=== PATIENT | male | born 1975 | race Caucasian/White ===

== ENCOUNTER 2020-12-30 11:57 | Emergency (ER) | payer BC ==
[2020-12-30 12:24] VITALS: BP 126/78; PULSE 67
[2020-12-30] MEDS: Bacitracin/Neomycin/Polymyxin B Oint 0.9 GM U/D Packet TOP ONE (12:32)
[2020-12-30] MEDS: Diphtheria,Pertussis(Acell),Tetanus Vaccine 0.5 ML Syringe IM ONE (12:47)
--- NOTE | 2020-12-30 12:52 | EDM.PDOC ---
ED HPI GENERAL MEDICAL PROBLEM - General Chief Complaint: Laceration Stated Complaint: laceration Time Seen by Provider: 12/30/20 12:15 Source of Information: Reports: Patient, RN, RN Notes Reviewed History Limitations: Reports: No Limitations - History of Present Illness INITIAL COMMENTS - FREE TEXT/NARRATIVE: Pt. presents to ER with complaints of laceration to L forearm. 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 Tetanus is not up to date. Pt. states the he placed a bandaid on the laceration which did control the bleeding, but he developed a hematoma surrounding the laceration. He did not notice any spurting of blood, but stated that the laceration was bleeding heavily. He subsequently presented to the ER. Pt. is allergic only to penicillin. He is a non-smoker, non drinker. Onset: Today Location: Reports: Upper Extremity, Left Quality: Reports: Sharp - Related Data Allergies Allergy/AdvReac Type Severity Reaction Status Date / Time Penicillins Allergy Cannot Verified 12/30/20 12:12 Remember Home Meds: Home Meds Glucosamine/D3/Boswellia Torie [Osteo Bi-Flex Caplet] 1 tab PO DAILY 12/30/20 [History] Loratadine [Claritin] 10 mg PO DAILY 12/30/20 [History] Past Medical History HEENT History: Reports: Other (See Below) Other HEENT History: seasonal allergies ED ROS GENERAL - Review of Systems Review Of Systems: Comprehensive ROS is negative, except as noted in HPI. ED EXAM, SKIN/RASH Exam: See Below Exam Limited By: No Limitations General Appearance: Alert, WD/WN, No Apparent Distress Peripheral Pulses: 4+: Radial (L) Extremities: Normal Inspection, Normal Range of Motion, Non-Tender, Normal Capillary Refill, Other (approx. 2 cm laceration to the volar aspect of L forearm. It is actually quite superficial but appears to have hit a large peripheral superficial vein. No arterial bleeding noted. Arterial pulse easily palpable distal to the laceration. Bleeding had stopped with the dressing that was applied.). No: Slow Capillary Refill, Pallor Neurological: Alert, Oriented, CN II-XII Intact, Other (Circulation, sensation and motor function were within normal limits.). No: Normal Cognition, No Motor/Sensory Deficits ED SKIN PROCEDURES - Laceration/Wound Repair Left Ventral Arm Appearance: Subcutaneous Distal NVT: Neuro & Vascular Intact, No Tendon Injury Local Anesthesia - Lidocaine (Xylocaine): 1% Plain Local Anesthetic Volume: 5cc Skin Prep: Providone-Iodine (Betadine), Saline, Sterile Drape Exploration/Debridement/Repair: Wound Explored Closed with: Sutures Lac/Wound length In cm: 2 Suture Size: 4-0 # of Sutures: 3 Suture Type: Nylon, Interrupted Course - Vital Signs Last Recorded V/S: Last Vital Signs Temp 36.7 C 12/30/20 12:05 Pulse 67 12/30/20 12:05 Resp 18 12/30/20 12:05 BP 126/78 12/30/20 12:05 Pulse Ox 98 12/30/20 12:05 - Orders/Labs/Meds Orders: Active Orders 24 hr Category Date Time Status Vaccine to be Administered/Admin Charge [RC] ASDIRECTED Care 12/30/20 12:31 Active Meds: Medications Discontinued Medications Generic Name Dose Route Start Last Admin Trade Name Freq PRN Reason Stop Dose Admin Diphtheria/Tetanus/Acell Pertussis 0.5 ml 12/30/20 12:30 Diphtheria,Pertussis(Acell),Tetanus Vaccine 0.5 Ml Syringe IM 12/30/20 12:31 .ONCE ONE Lidocaine HCl 10 ml 12/30/20 12:11 12/30/20 12:18 Lidocaine 1% 5 Ml Sdv INJECT 12/30/20 12:12 10 ml ONETIME ONE Administration Neomycin/Polymyxin/Bacitracin 1 each 12/30/20 12:13 12/30/20 12:32 Bacitracin/Neomycin/Polymyxin B Oint 0.9 Gm U/D Packet TOP 12/30/20 12:14 1 each ONETIME ONE Administration Departure - Departure Time of Disposition: 12:57 Disposition: Home, Self-Care 01 Clinical Impression: Laceration - Discharge Information Instructions: Laceration Care, Adult Referrals: PCP,None [Primary Care Provider] - Forms: ED Department Discharge Additional Instructions: Sutures out in 12 days in the clinic. Keep open to air as much as possible. Keep GREGG wrap on for the next few days to keep the hematoma from getting bigger. This will decrease in size over time. Cover if you anticipate it getting dirty. You can probably just use a big bandaid after today. Keep open to air as much as possible if you don't anticipate the area getting dirty. Sepsis Event Note (ED) - Evaluation Sepsis Screening Result: No Definite Risk - Focused Exam Vital Signs: Vital Signs Temp Pulse Resp BP Pulse Ox 12/30/20 12:05 36.7 C 67 18 126/78 98 - Problem List Review Problem List Initiated/Reviewed/Updated: Yes - My Orders Last 24 Hours: My Active Orders 12/30/20 12:31 Vaccine to be Administered/Admin Charge [RC] ASDIRECTED - Assessment/Plan Last 24 Hours: My Active Orders 12/30/20 12:31 Vaccine to be Administered/Admin Charge [RC] ASDIRECTED Plan: Sutures out in 12 days in the clinic. Keep open to air as much as possible. Keep GREGG wrap on for the next few days to keep the hematoma from getting bigger. This will decrease in size over time. Cover if you anticipate it getting dirty. You can probably just use a big bandaid after today. Keep open to air as much as possible if you don't anticipate the area getting dirty.
== END 2020-12-30 12:57 | disposition home or self-care (01) ==
LOC: LL.ED 11:57
DX: S51.812A Laceration without foreign body of left forearm, initial encounter (principal); Z88.0 Allergy status to penicillin; Z23 Encounter for immunization; W26.0XXA Contact with knife, initial encounter; Y92.79 Other farm location as the place of occurrence of the external cause
CPT/HCPCS: 12001; 90471; 90715; 99282-25; 99283

== ENCOUNTER 2022-06-16 10:35 | Day surgery (SDC) | payer BC ==
[~2022-06-16 10:35] MED LIST: Lactated Ringers 1,000 ML IV SCH; Midazolam 1 MG/ML 2 ML SDV ONE; Propofol 200 MG/20 ML SDV ONE; Sodium Chloride 0.9% 10 ML Syringe FLUSH PRN
[2022-06-16] MEDS ORDERED: Propofol 200 MG/20 ML SDV IVPUSH ONE (12:35)
[2022-06-16] MEDS ORDERED: Midazolam 1 MG/ML 2 ML SDV IVPUSH ONE (12:35)
== END 2022-06-16 14:00 | disposition home or self-care (01) ==
LOC: LL.SDS 10:35
PROVIDERS: ATTEND Surgery
DX: R19.5 Other fecal abnormalities (principal); Z79.899 Other long term (current) drug therapy; Z88.0 Allergy status to penicillin
CPT/HCPCS: 00811; J2250; J2704; J7120

== ENCOUNTER 2023-01-06 07:00 | Emergency (ER) | payer BC ==
[2023-01-06 07:58] LABS: BASOPHILS ABSOLUTE AUTO 0.02 K/uL (0.00-0.20); BASOPHILS PERCENT AUTO 0.4 % (0.0-2.0); EOSINOPHILS ABSOLUTE AUTO 0.13 K/uL (0.00-0.50); EOSINOPHILS PERCENT AUTO 2.8 % (0.0-5.0); HEMATOCRIT 42.8 % (39.0-49.0); HEMOGLOBIN 14.4 g/dL (13.1-16.8); LYMPHOCYTES ABSOLUTE AUTO 1.33 K/uL (0.50-3.50); LYMPHOCYTES PERCENT AUTO 28.9 % (10.0-50.0); MEAN CORPUSCULAR HEMOGLOBIN 29.6 pg (28.2-33.3); MEAN CORPUSCULAR HGB CONC 33.6 g/dL (31.7-36.0); MEAN CORPUSCULAR VOLUME 88.1 fL (84.0-98.0); MONOCYTES ABSOLUTE AUTO 0.41 K/uL (0.00-1.00); MONOCYTES PERCENT AUTO 8.9 % (2.0-14.0); NEUTROPHILS ABSOLUTE AUTO 2.72 K/uL (1.40-7.00); PLATELET COUNT,PLT 280 K/uL (150-350); RED BLOOD CELL COUNT 4.86 M/uL (4.33-5.41); RED CELL DISTRIBUTION WIDTH 12.9 % (11.2-14.1); WHITE BLOOD CELL COUNT,WBC 4.6 K/uL (4.0-10.2)
[2023-01-06] MEDS ORDERED: Iopamidol 755 Mg/ML 100 ML Bottle IVPUSH ONE (08:09)
[2023-01-06 08:11] LABS: PROTHROMBIN TIME 9.9 SEC (9.0-11.1); PTT,PARTIAL THROMBOPLSTIN TIME 25.9 SEC (23.6-29.8)
[2023-01-06 08:15] LABS: ALANINE AMINOTRANSFERASE,ALT 21 U/L (12-78); ALKALINE PHOSPHATASE 78 IU/L (46-116); ASPARTATE AMNIOTRANSFERASE,AST 22 U/L (15-37); BILIRUBIN TOTAL 0.2 mg/dL (0.2-1.0); BLOOD UREA NITROGEN,BUN 20 mg/dL (7-18); CHLORIDE,CL 106 mmol/L (98-107); CREATININE 1.02 mg/dL (0.51-1.17); ESTIMATED GFR 90 mL/min (>=60); GLUCOSE RANDOM 126 mg/dL (70-99); MAGNESIUM 1.9 mg/dL (1.8-2.4); POTASSIUM,K 3.7 mmol/L (3.5-5.1); PROTEIN TOTAL,TP 7.4 g/dL (6.4-8.2); SODIUM,NA 141 mmol/L (136-145)
== END 2023-01-06 08:18 ==
LOC: LL.ED 07:00
DX: I63.81 Other cerebral infarction due to occlusion or stenosis of small artery (principal); Z88.0 Allergy status to penicillin
CPT/HCPCS: 70450; 80053; 83735; 84484; 85025; 85610; 85730; 99285